=== PATIENT | female | born 1960 | race African-American/Black ===

== ENCOUNTER 2020-03-04 18:13 | Emergency (ER) | payer MEDICAID ==
[~2020-03-04] VITALS: Ht 170.2 cm; Wt 81.2 kg
--- NOTE | 2020-03-04 18:20 | NUR ---
[place], from home, had near syncopal episode, BP 89/58 on scene NS 500ml given BP 131/75, had beer and weed today, BS 126. Patient a/ox4, breathing even and unlabored, no sob noted, per patient, "i feel better, i didn't want to come but the paramedics scared my daughters." Patient attached to the panel monitor.
--- NOTE | 2020-03-04 18:37 | NUR ---
Patient had an orthostatic vital signs, patient denies dizziness, only c/o body pain due to fibromyalgia. Patient in no distress, stated " I want to go home"
--- NOTE | 2020-03-04 18:44 | NUR ---
Patient discharged to home in stable condition. Written and verbal after care instructions given. Patient and verbalizes understanding of instruction. Patient discharged to daughter, assisted via wheelchair.
[2020-03-04 18:45] VITALS: BP 127/87
== END 2020-03-04 18:45 | disposition home or self-care (01) ==
LOC: ER 18:15
DX: R55 Syncope and collapse (principal); F19.10 Other psychoactive substance abuse, uncomplicated; I10 Essential (primary) hypertension; M79.7 Fibromyalgia